=== PATIENT | male | born 1980 | race Caucasian/White ===

== ENCOUNTER 2016-11-11 16:25 | Emergency (ER) | payer OTHER ==
[~2016-11-11] VITALS: Wt 115.0 kg
[~2016-11-11 16:25] MED LIST: ACET325T33 PO; IBUP800T25 PO; PEN500 PO
[2016-11-11] MEDS ORDERED: IBUPROFEN 800 MG TAB PO ONE (20:00)
--- NOTE | 2016-11-11 20:39 | RADRPT ---
PROCEDURE: XR Chest. CLINICAL INDICATION: Chest pain. TECHNIQUE: AP view of the chest was obtained. COMPARISON: None available FINDINGS: The cardiomediastinal silhouette is within normal limits. The lungs are partially expanded but other chapman clear. No signs of pleural fluid or pneumothorax are seen. The osseous structures and soft tiss ues are unremarkable. IMPRESSION: 1. No evidence for active cardiopulmonary disease. RPTAT: HGAS .Cl Iglesias MD, MD Date Time Electronically viewed and signed by .Cl Iglesias MD, on 11/11/2016 20:39 .S/
[2016-11-11] MEDS ORDERED: IBUP-1542 PO (20:46)
[2016-11-11 21:05] VITALS: BP 145/90; PULSE 67; RESP 16; TEMP 98.9
--- NOTE | 2016-11-11 22:16 | ERD ---
ER Documentation Chief Complaint Date/Time DATE: 11/11/16 TIME: 22:13 Chief Complaint left side nipple tenderness and redness. some bloody drainage noted. HPI Patient is a 36-year-old male with no medical problems who presents with left- sided nipple pain. He said that his pinches nipple 1 week ago and now he has pain and had some blood from the nipple. He tried ibuprofen. He feels it as a sharp pain. He does not know the name of his primary doctor. He did not have any pain prior to his pinching him. ROS All systems reviewed and are negative except as per history of present illness. Medications Home Meds Active Scripts Ibuprofen* (Motrin*) 600 Mg Tab, 600 MG PO Q6H Y for PAIN AND OR ELEVATED TEMP, #30 TAB Prov:SRIRAM HOPE MD 11/11/16 Acetaminophen* (Tylenol*) 325 Mg Tablet, 2 TAB PO Q8 Y for PAIN AND OR ELEVATED TEMP, #20 TAB Prov:LESLIE MIRAMONTES PA-C 07/28/15 Ibuprofen* (Motrin*) 800 Mg Tab, 800 MG PO Q6, #30 TAB Prov:LESLIE MIRAMONTES PA-C 07/28/15 Penicillin V Potassium* (Penicillin V K*) 500 Mg Tab, 500 MG PO BID for 10 Days , TAB Prov:LESLIE MIRAMONTES PA-C 07/28/15 Allergies Allergies: Coded Allergies: No Known Drug Allergies (Verified Allergy, Mild, 03/19/14) PMhx/Soc Medical and Surgical Hx: pt denies Medical Hx, pt denies Surgical Hx History of Surgery: No Anesthesia Reaction: No Hx Neurological Disorder: No Hx Respiratory Disorders: No Hx Cardiac Disorders: No Hx Psychiatric Problems: No Hx Miscellaneous Medical Probl: No Hx Alcohol Use: No Hx Substance Use: No Hx Tobacco Use: No Smoking Status: Former smoker FmHx Family History: diabetes Physical Exam Vitals Vital Signs Date Time Temp Pulse Resp B/P Pulse Ox O2 Delivery O2 Flow Rate FiO2 11/11/16 21:05 98.9 67 16 145/90 99 Room Air 11/11/16 16:32 98.5 85 20 168/88 98 Physical Exam Const: No acute distress Head: Atraumatic Eyes: Normal Conjunctiva ENT: Normal External Ears, Nose and Mouth. Neck: Full range of motion..~ No meningismus. Resp: Clear to auscultation bilaterally Cardio: Regular rate and rhythm, no murmurs Abd: Soft, non tender, non distended. Normal bowel sounds Skin: Bruising around the left nipple without sign of active bleeding, no mass palpated Back: No midline or flank tenderness Ext: No cyanosis, or edema Neur: Awake and alert Psych: Normal Mood and Affect Results 24 hrs Current Medications Medications (Trade) Dose Ordered Sig/Kirstin Route PRN Reason Start Time Stop Time Status Last Admin Dose Admin Ibuprofen (Motrin) 800 mg ONCE ONCE PO 11/11/16 20:00 11/11/16 20:01 DC 11/11/16 19:53 Procedures/MDM EKG read by me: Rate/Rhythm: Regular rate and rhythm at a normal rate Intervals: Normal Impression: No evidence of ischemia or arrhythmia Chest x-ray negative per radiology. Patient is a 36-year-old male presents with nipple bleeding and pain. The patient had a normal EKG and chest x-ray was given ibuprofen for pain. At this point I doubt acute coronary syndrome, pneumonia, pneumothorax, pulmonary embolism, or aortic dissection. The patient was concerned for possible breast cancer but at this point I do not think he has breast cancer. However he will need close follow-up with his primary doctor within 24-48 hours. He can return for any worsening symptoms. Departure Diagnosis: Primary Impression: Hematoma Additional Impression: Chest pain Chest pain type: unspecified Qualified Code: R07.9 - Chest pain, unspecified type Condition: Fair Patient Instructions: Chest Pain, Uncertain Cause Referrals: Your doctor Additional Instructions: Call your primary care doctor TOMORROW for an appointment during the next 1-2 days.See the doctor sooner or return here if your condition worsens before your appointment time. SRIRAM HOPE MD Nov 11, 2016 22:15
== END 2016-11-11 21:12 | disposition home or self-care (01) ==
LOC: E/R 16:25
DX: S20.212A Contusion of left front wall of thorax, initial encounter (principal); R40.2142 Coma scale, eyes open, spontaneous, at arrival to emergency department; R40.2362 Coma scale, best motor response, obeys commands, at arrival to emergency department; R40.2252 Coma scale, best verbal response, oriented, at arrival to emergency department; X58.XXXA Exposure to other specified factors, initial encounter; Y92.9 Unspecified place or not applicable; Z87.891 Personal history of nicotine dependence
CPT/HCPCS: 71010; 93005; Z7502; Z7610

== ENCOUNTER 2017-09-19 14:28 | Emergency (ER) | payer OTHER ==
[~2017-09-19] VITALS: Ht 165.1 cm; Wt 112.0 kg
[~2017-09-19 14:28] MED LIST changes: +IBUP-1542 PO; -PEN500 PO; +PENI500T PO
[2017-09-19 14:43] VITALS: Ht 165.1 cm; Wt 112.0 kg
[2017-09-19] MEDS ORDERED: KETOROLAC 60 MG INJ IM STA (15:42)
--- NOTE | 2017-09-19 16:44 | RADRPT ---
PROCEDURE: CT lumbosacral spine. CLINICAL INDICATION: Low back pain with right radiculopathy.. TECHNIQUE: CT examination of the lumbosacral spine was performed on a [address] scanner. Oneill l and sagittal reformatted images were made. Images were reviewed on a high resolution PACS system. The images were reviewed on a high resolution workstation. Total radiation dose: Total CTDIvol: 38.4 mGy. Total DLP: 1149 mGy-cm. One or more of the following dose reduction techniques were used: automated exposure control, adjustment of the mA and/or kV acc ording to patient size, or use of iterative reconstruction technique COMPARISON: None available. FINDINGS: BONY STRUCTURES, BONY ALIGNMENT: There is no fracture, dislocation or destructive bony lesion. The vertebral heights are well mainta ined. The bony alignment is anatomic. The paraspinal soft tissues unremarkable. There is 0.3 cm nonobstructing stone in the lower pole ab of the left kidney. INDIVISUAL DISC SPACE LEVELS: T12/L1: There is no posterior herniated disk or bulging disk. There is degenerative discogenic dis ease with minimal anterolateral osteophytes. No central canal stenosis or foraminal stenosis. The facet joints are normal. L1/2: There is no posterior herniated disk or bulging disk. There is degenerative discogenic dise ase with minimal anterolateral osteophytes. No central canal stenosis or foraminal stenosis. The f acet joints are normal.. L2/3: There is no posterior herniated disk or bulging disk. There is degenerative discogenic dise ase with minimal anterolateral osteophytes. No central canal stenosis or foraminal stenosis. The f acet joints are normal. L3/4: There is no posterior herniated disk or bulging disk. There is degenerative discogenic disea se with minimal anterolateral osteophytes. No central canal stenosis or foraminal stenosis. The fa cet joints are normal. L4/5: There is no posterior herniated disk or bulging disk. There is degenerative discogenic disea se with minimal anterolateral osteophytes. No central canal stenosis. There is mild narrowing of t he right neural foramen due to disk/osteophyte complex. The facet joints are normal. L5/S1: There is no posterior herniated disk or bulging disk. There is degenerative discogenic dis ease with minimal anterolateral osteophytes. No central canal stenosis. There is mild narrowing of the left neural foramen due to disk/osteophyte complex. The facet joints are normal. IMPRESSION: 1. L5/S1: Mild narrowing of the left neural foramen due to disk/osteophyte complex. 2. L4/5: Mild narrowing of the right neural foramen due to disk/osteophyte complex. 3. No central canal stenosis. 4. Multilevel minimal degenerative spondylosis as described above. RPTAT: GG .Ramakrishna Melo MD, MD Date Time Electronically viewed and signed by .Ramakrishna Melo MD, on 09/19/2017 16:44 .Y/
[2017-09-19] MEDS ORDERED: NAPR-260 PO (17:11)
[2017-09-19 17:18] VITALS: BP 112/75; PULSE 75; RESP 19
--- NOTE | 2017-09-19 18:28 | ERD ---
ER Documentation Chief Complaint Chief Complaint back pain with right radicular leg pain 08/15, diff walking/sitting HPI 37-year-old male patient with no significant past medical history presents to the ED complaining of right-sided back pain that radiates down to the right leg. Patient reports that the pain is sharp and rates it a 10 out of 10. States that he has was seen at a [facility] Compensation facility and had an x- ray which was negative. Reports that he lifted 100 pounds. Reports that he has been taking muscle relaxant and Tylenol without relief ROS All systems reviewed and are negative except as per history of present illness. Medications Home Meds Active Scripts Naproxen* (Naprosyn*) 500 Mg Tablet, 500 MG PO BID Y for PAIN AND/OR INFLAMMATION, #30 TAB Prov:CHERISE PALM PA-C 09/19/17 Ibuprofen* (Motrin*) 600 Mg Tab, 600 MG PO Q6H Y for PAIN AND OR ELEVATED TEMP, #30 TAB Prov:SRIRAM HOPE MD 11/11/16 Acetaminophen* (Tylenol*) 325 Mg Tablet, 2 TAB PO Q8 Y for PAIN AND OR ELEVATED TEMP, #20 TAB Prov:LESLIE MIRAMONTES PA-C 07/28/15 Ibuprofen* (Motrin*) 800 Mg Tab, 800 MG PO Q6, #30 TAB Prov:LESLIE MIRAMONTES PA-C 07/28/15 Penicillin V Potassium* (Penicillin V K*) 500 Mg Tab, 500 MG PO BID for 10 Days , TAB Prov:LESLIE MIRAMONTES PA-C 07/28/15 Allergies Allergies: Coded Allergies: No Known Drug Allergies (Verified Allergy, Mild, 03/19/14) PMhx/Soc History of Surgery: No Anesthesia Reaction: No Hx Neurological Disorder: No Hx Respiratory Disorders: No Hx Cardiac Disorders: No Hx Psychiatric Problems: No Hx Miscellaneous Medical Probl: No Hx Alcohol Use: Yes ( "used to drink a lot" but quit) Hx Substance Use: No Hx Tobacco Use: No Physical Exam Vitals Vital Signs Date Time Temp Pulse Resp B/P Pulse Ox O2 Delivery O2 Flow Rate FiO2 09/19/17 17:18 75 19 112/75 100 Room Air 09/19/17 14:43 98.2 86 18 144/81 96 Physical Exam Const: Ksj-pev-jjeubocmz, well-nourished. In no acute distress. Head: Atraumatic, normocephalic Eyes: Normal Conjunctiva without injection. No purulent discharge. ENT: Normal external ear, nose. Moist oropharynx without tonsillar exudates. Non -erythematous pharynx. Uvula midline. No drooling. No trismus. Neck: No cervical midline tenderness. Full range of motion. No meningismus. No cervical lymphadenopathy. No JVD. Resp: Clear to auscultation bilaterally. No wheezing, rhonchi, rales, or crackles. No accessory muscle use. No retractions. Cardio: Regular rate and rhythm. No murmurs, rubs or gallops. Abd: Soft, nontender, non distended. Normal bowel sounds. No palpable masses. No rebound tenderness. No guarding. Negative McBurney's point. Negative psoas sign. Negative obturator sign. Skin: No petechiae or rashes Back: No midline tenderness. No CVA tenderness. Palpation of the right musculoskeletal region. Limited range of motion due to pain. Ext: No cyanosis, or edema. Neur: Awake and alert. Normal gait. Normal coordination. Psych: Normal Mood and Affect Results 24 hrs Current Medications Medications (Trade) Dose Ordered Sig/Kirstin Route PRN Reason Start Time Stop Time Status Last Admin Dose Admin Ketorolac Tromethamine (Toradol) 60 mg ONCE STAT IM 09/19/17 15:42 09/19/17 15:46 DC 09/19/17 15:52 Procedures/MDM 37-year-old male patient with no significant past medical history presents to the ED complaining of right lower back pain that radiates down his right lower leg. Patient is afebrile and nontoxic-appearing. Patient has normal vital signs. CT of the lumbar spine was ordered to further evaluate patient. Patient was given Toradol here in the ED with slight improvement of his symptoms. PROCEDURE: CT lumbosacral spine. CLINICAL INDICATION: Low back pain with right radiculopathy.. TECHNIQUE: CT examination of the lumbosacral spine was performed on a [address] scanner. Coronal and sagittal reformatted images were made. Images were reviewed on a high resolution PACS system. The images were reviewed on a high resolution workstation. Total radiation dose: Total CTDIvol: 38.4 mGy. Total DLP: 1149 mGy-cm. One or more of the following dose reduction techniques were used: automated exposure control, adjustment of the mA and/or kV according to patient size, or use of iterative reconstruction technique COMPARISON: None available. FINDINGS: BONY STRUCTURES, BONY ALIGNMENT: There is no fracture, dislocation or destructive bony lesion. The vertebral heights are well maintained. The bony alignment is anatomic. The paraspinal soft tissues unremarkable. There is 0.3 cm nonobstructing stone in the lower pole ab of the left kidney. INDIVISUAL DISC SPACE LEVELS: T12/L1: There is no posterior herniated disk or bulging disk. There is degenerative discogenic disease with minimal anterolateral osteophytes. No central canal stenosis or foraminal stenosis. The facet joints are normal. L1/2: There is no posterior herniated disk or bulging disk. There is degenerative discogenic disease with minimal anterolateral osteophytes. No central canal stenosis or foraminal stenosis. The facet joints are normal.. L2/3: There is no posterior herniated disk or bulging disk. There is degenerative discogenic disease with minimal anterolateral osteophytes. No central canal stenosis or foraminal stenosis. The facet joints are normal. L3/4: There is no posterior herniated disk or bulging disk. There is degenerative discogenic disease with minimal anterolateral osteophytes. No central canal stenosis or foraminal stenosis. The facet joints are normal. L4/5: There is no posterior herniated disk or bulging disk. There is degenerative discogenic disease with minimal anterolateral osteophytes. No central canal stenosis. There is mild narrowing of the right neural foramen due to disk/osteophyte complex. The facet joints are normal. L5/S1: There is no posterior herniated disk or bulging disk. There is degenerative discogenic disease with minimal anterolateral osteophytes. No central canal stenosis. There is mild narrowing of the left neural foramen due to disk/osteophyte complex. The facet joints are normal. IMPRESSION: 1. L5/S1: Mild narrowing of the left neural foramen due to disk/osteophyte complex. 2. L4/5: Mild narrowing of the right neural foramen due to disk/osteophyte complex. 3. No central canal stenosis. 4. Multilevel minimal degenerative spondylosis as described above. Patient has back pain with sciatica. Patient is ambulating here in the ED without difficulty. Denies saddle anesthesia, numbness or tingling, urine or bowel incontinence, weakness. Low suspicion for cauda equina syndrome, cord compression, nephrolithiasis, aortic aneurysm, aortic dissection, epidural abscess, spinal hematoma, malignancy, pyelonephritis, or other emergent conditions. Discharge medications: Naproxen Follow up with primary care physician in 1-2 days. Instructed patient to return to the ED sooner for any worsening symptoms. Patient's questions were answered. Patient understood and agreed with discharge plan. Patient discharged stable. Departure Diagnosis: Primary Impression: Back pain Back pain location: back pain in unspecified location Chronicity: unspecified Back pain laterality: right Qualified Code: M54.9 - Right-sided back pain, unspecified back location, unspecified chronicity Condition: Stable Patient Instructions: Back Pain (Acute Or Chronic), Back Pain W/ Sciatica Referrals: [facility] YOU HAVE RECEIVED A MEDICAL SCREENING EXAM AND THE RESULTS INDICATE THAT YOU DO NOT HAVE A CONDITION THAT REQUIRES URGENT TREATMENT IN THE EMERGENCY DEPARTMENT. FURTHER EVALUATION AND TREATMENT OF YOUR CONDITION CAN WAIT UNTIL YOU ARE SEEN IN YOUR DOCTORS OFFICE WITHIN THE NEXT 1-2 DAYS. IT IS YOUR RESPONSIBILITY TO MAKE AN APPOINTMENT FOR FOLOW-UP CARE. IF YOU HAVE A PRIMARY DOCTOR --you should call your primary doctor and schedule an appointment IF YOU DO NOT HAVE A PRIMARY DOCTOR YOU CAN CALL OUR PHYSICIAN REFERRAL HOTLINE AT IF YOU CAN NOT AFFORD TO SEE A PHYSICIAN YOU CAN CHOSE FROM THE FOLLOWING [facility] [address] [facility]. [facility] [address] [facility]. [facility] [address] [facility] [address] [facility]. [facility] [address] [facility]. [facility]. [address] [facility] YOU HAVE RECEIVED A MEDICAL SCREENING EXAM AND THE RESULTS INDICATE THAT YOU DO NOT HAVE A CONDITION THAT REQUIRES URGENT TREATMENT IN THE EMERGENCY DEPARTMENT. FURTHER EVALUATION AND TREATMENT OF YOUR CONDITION CAN WAIT UNTIL YOU ARE SEEN IN YOUR DOCTORS OFFICE WITHIN THE NEXT 1-2 DAYS. IT IS YOUR RESPONSIBILITY TO MAKE AN APPOINTMENT FOR FOLOW-UP CARE. IF YOU HAVE A PRIMARY DOCTOR --you should call your primary doctor and schedule and appointment IF YOU DO NOT HAVE A PRIMARY DOCTOR YOU CAN CALL OUR PHYSICIAN REFERRAL HOTLINE AT . IF YOU CAN NOT AFFORD TO SEE A PHYSICIAN YOU CAN CHOSE FROM THE FOLLOWING [facility] INSTITUTIONS: [facility] [address] [place] [address] [facility] [address] [place] [address] [facility] + [facility] [address] [place] [address] [facility] Urgent Care 7 a.m.- 11 p.m. Every Day of the Week NO APPOINTMENT OR AUTHORIZATION NEEDED SO [facility] Hours: Mon-Fri 9:00 AM - 5:00 PM Additional Instructions: Call your primary care doctor TOMORROW for an appointment during the next 2-3 days.See the doctor sooner or return here if your condition worsens before your appointment time. No heavy lifting. CHERISE PALM PA-C Sep 19, 2017 18:28
== END 2017-09-19 17:19 | disposition home or self-care (01) ==
LOC: FTE 14:28
DX: M54.5 Low back pain (principal)
CPT/HCPCS: 72131; J1885; 96372

== ENCOUNTER 2018-03-12 11:12 | Emergency (ER) | END 2018-03-12 13:25 | disposition home or self-care (01) ==

== ENCOUNTER 2018-03-19 12:36 | Emergency (ER) | END 2018-03-19 15:44 | disposition home or self-care (01) ==

== ENCOUNTER 2018-03-29 21:01 | Inpatient (IN) | END 2018-04-01 13:44 | disposition home or self-care (01) | DRG 638 ==

== ENCOUNTER 2018-04-19 05:13 | Emergency (ER) | END 2018-04-19 10:17 | disposition home or self-care (01) ==

== ENCOUNTER 2018-10-10 07:46 | Emergency (ER) | END 2018-10-10 08:37 | disposition home or self-care (01) ==